=== PATIENT | male | born 1970 | race Caucasian/White ===

== ENCOUNTER 2018-01-22 18:34 | Emergency (ER) | payer MEDICAID ==
[2018-01-22 18:43] VITALS: BP 128/77
== END 2018-01-22 20:15 | disposition left against medical advice (07) ==
LOC: ED 18:34
DX: Z53.21 Procedure and treatment not carried out due to patient leaving prior to being seen by health care provider (principal)

== ENCOUNTER 2019-04-23 08:48 | Emergency (ER) | payer MEDICAID ==
[2019-04-23] MEDS ORDERED: DEXAMETHASONE 10 MG/ML VIAL PO STA (09:41)
[2019-04-23] MEDS ORDERED: CHERRY SYRUP 10 ML UDC PO ONE (09:41)
[2019-04-23] MEDS ORDERED: KETOROLAC 60 MG/2 ML VIAL IM STA (09:42)
--- NOTE | 2019-04-23 09:44 | ED Physician Documentation ---
PD HPI BACK INJURY - Stated complaint Stated Complaint: GLF - History obtained from History obtained from: Patient - History of Present Illness Location: Right, Lower Type of injury: Fall Where injury occurred: Home Timing - onset: Yesterday Timing - duration: Hours Timing - details: Abrupt onset, Still present Quality: Pain, Spasm, Sharp Improved by: Rest, Immobilization Worsened by: Moving, Palpating Associated symptoms: Numbness. No: Fever, Weakness, Incontinent of urine, Unable to urinate, Hematuria, Incontinent of stool Contributing factors: No: Anticoagulated Similar symptoms before: Has not had sx before Recently seen: Not recently seen - Additional information Additional information: 48-year-old male was on his deck yesterday cleaning his grill when he stepped back and fell off the deck. The deck is about 30 inches tall and he fell onto his buttocks and outstretched right hand. He had some pain in his wrist which is now resolved and he had some slight pain in his back that became severe early this morning when he is woken he is having trouble moving around he is having significant pain he is having radiation of numbness down the right leg. Review of Systems Constitutional: denies: Fever Nose: denies: Congestion Throat: denies: Sore throat Respiratory: denies: Dyspnea, Cough GI: denies: Abdominal Pain, Nausea, Vomiting : denies: Dysuria, Frequency, Incontinent Skin: denies: Rash Musculoskeletal: reports: Back pain, Extremity pain. denies: Neck pain Neurologic: reports: Numbness. denies: Generalized weakness, Focal weakness PD PAST MEDICAL HISTORY - Present Medications Home Medications: Ambulatory Orders Medication Instructions Recorded Confirmed Cyclobenzaprine [Flexeril] 10 mg PO TID PRN #20 tablet 04/23/19 Hydrocodone/Acetaminophen 1 - 2 each PO Q6H PRN #14 tablet 04/23/19 [Hydrocodon-Acetaminophen 5-325] - Allergies Allergies/Adverse Reactions: Allergies Allergy/AdvReac Type Severity Reaction Status Date / Time No Known Drug Allergies Allergy Verified 04/23/19 08:58 PD ED PE NORMAL - Vitals Vital signs reviewed: Yes (normal ) - General General: Alert and oriented X 3, No acute distress, Well developed/nourished - HEENT HEENT: Atraumatic, PERRL, EOMI - Respiratory Respiratory: No respiratory distress - Back Back: No CVA TTP, Other (There is lower lumbar midline bony tenderness as well as tenderness to the right lower lumbar into the right sciatic notch. 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 2. No fracture or significant degenerative disc disease. No listhesis.), EMP read indepedently, See rad report PD MEDICAL DECISION MAKING - ED course Complexity details: reviewed results, re-evaluated patient, considered differential, d/w patient ED course: 48 y/o male with a fall and lumbar contusion with sciatica has no evidence of fracture on plain film. He is administered PO decadron and IM toradal. We will place him on some pain medication and muscle relaxant. Pharmacy called and the patient is on suboxone and the hydrocodone is cancelled. Departure - Departure Disposition: 01 Home, Self Care Clinical Impression: Sciatica Qualifiers: Laterality: right Qualified Code(s): M54.31 - Sciatica, right side Lumbar contusion Qualifiers: Encounter type: initial encounter Qualified Code(s): S30.0XXA - Contusion of lower back and pelvis, initial encounter Condition: Stable Instructions: ED Contusion Back, ED Sciatica Follow-Up: [facility] [Provider Group] Prescriptions: Cyclobenzaprine [Flexeril] 10 mg PO TID PRN #20 tablet PRN Reason: Spasms Hydrocodone/Acetaminophen [Hydrocodon-Acetaminophen 5-325] 1 - 2 each PO Q6H PRN #14 tablet PRN Reason: pain Discharge Date/Time: 04/23/19 10:38
--- NOTE | 2019-04-23 10:19 | XRAY Report ---
Reason: fall low back pain worse overnight Procedure Date: 04/23/2019 Accession Number: [id number] / [id number] Procedure: XR - Lumbar Spine 2 View CPT Code: FULL RESULT: EXAM: LUMBOSACRAL SPINE RADIOGRAPHY EXAM DATE: 04/23/2019 09:57 AM. CLINICAL HISTORY: Fall low back pain worse overnight. COMPARISONS: None. TECHNIQUE: 2 views. FINDINGS: Alignment: Normal. No spondylolisthesis or scoliosis. Bones: Five [id number] lumbar vertebral bodies are present. Transitional anatomy with partial sacralization of L5 on the left. 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 Disks: Normal. Disk heights are maintained. Facets: No degenerative changes. Sacroiliac Joints: Unremarkable. Soft Tissues: Normal. The visualized bowel gas pattern is normal. IMPRESSION: 1. Transitional anatomy with partial sacralization of L5 on the left. 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 2. No fracture or significant degenerative disk disease. No listhesis. [facility]
[2019-04-23 10:38] VITALS: BP 114/86
== END 2019-04-23 10:38 | disposition home or self-care (01) ==
LOC: ED 08:48
DX: M54.31 Sciatica, right side (principal); S30.0XXA Contusion of lower back and pelvis, initial encounter; W17.89XA Other fall from one level to another, initial encounter; Y93.E9 Activity, other interior property and clothing maintenance; Y92.008 Other place in unspecified non-institutional (private) residence as the place of occurrence of the external cause
CPT/HCPCS: 72100; 96372; 99284; A9270